=== PATIENT | male | born 1950 | race Caucasian/White ===

== ENCOUNTER 2023-09-16 06:32 | Day surgery (SDC) | payer OTHER ==
--- NOTE | 2023-09-13 14:08 | EKG ---
Test Date: 2023-09-12 Test Time: 12:11:37 Floor Runner: ELVER MEASUREMENT RESULTS: Intervals: Rate: 71 LA: 202 QRSD: 90 QT: 410 QTc: 445 [place]: P: 22 LA: 202 QRS: -8 T: 2 INTERPRETIVE STATEMENTS: Sinus rhythm with frequent premature ventricular complexes Minimal voltage criteria for LVH, may be normal variant Nonspecific ST abnormality Abnormal ECG No previous ECG available for comparison Electronically Signed On 09-13-23 14:06:55 APPRENTICE EMBALMER by Ruddy Howard
[2023-09-16] MEDS ORDERED: CYCLOPENTOLATE 2% OPTH 2 ML OPTH ONE (07:00)
[2023-09-16] MEDS ORDERED: PHENYLEPHRINE 10% OPTH 5ML OPTH ONE (07:00)
[2023-09-16] MEDS ORDERED: TROPICAMIDE 1% OPTH 3 ML BOT OPTH ONE (07:00)
[2023-09-16] MEDS ORDERED: MOXIFLOXACIN HCL 10 DROPS/ML **OR USE OPTH ONE (07:00)
[2023-09-16] MEDS ORDERED: KETOROLAC OPTHALMIC 5 ML BOT ONE (07:01)
[2023-09-16] MEDS ORDERED: BSS OPTHALMIC SOL 15 ML OPTH ONE (07:12)
[2023-09-16] MEDS ORDERED: POVIDONE-IODINE 5% EYE DROPS ONE (07:12)
[2023-09-16] MEDS ORDERED: BALANCED SALT IRRIG PLAIN 500 ML IRR ONE (07:12)
[2023-09-16] MEDS ORDERED: propofoL 200 MG/20 ML VIAL IV ONE (07:27)
[2023-09-16] MEDS ORDERED: EPHEDRINE SULF 50 MG/ML VIAL ONE (07:58)
--- NOTE | 2023-09-16 08:44 | OP ---
Date of Procedure: 09/16/2023 Surgeon: Jay Saenz MD Preoperative Diagnosis: Visually significant senile cataract, right eye. Postoperative Diagnosis: Visually significant senile cataract, right eye. Procedure Performed: Cataract extraction, right eye, with placement of intraocular lens. Description Of Procedure: After being properly identified in the preoperative holding area, the jaquan ent was taken back to the operating room, where a time-out was performed. The patient was then place d under general anesthesia and prepped and draped in the normal sterile fashion. Examination of the eye underneath the operating microscope revealed a very well-dilated pupil and a good red reflex. Th e globe was grasped with a pair of 0.12 forceps and paracentesis wound was made superiorly and inferi marcial using a 1 mm MVR blade. The anterior chamber was then filled with Viscoat. Again grasping the globe with a pair of 0.12 forceps, the main phaco incision wound was made using a 2.4 mm keratome in a triplanar fashion. A cystotome was used to initiate a capsulotomy, and this was completed using Ut rata forceps. Hydrodissection and hydrodelineation were carried out using a Ramesh cannula resulting in free rotation of the lens nucleus. The lens was thereafter removed in the standard divide and con quer technique. Once all 4 quadrants had been removed, the phaco handpiece was exchanged for bimanua l irrigation-aspiration handpieces and remaining cortical material was removed and the capsular bag p olished. The capsular bag was then filled with additional Provisc, and then, a Gilbert and Gilbert m deepak 20.0 diopter lens, model DC blue, serial #[id number], was implanted into the capsular bag. The viscoelastic was then removed using the irrigation-aspiration handpieces and the wounds hydrated and found to be watertight. The procedure was concluded with the patient tolerating the procedure well, having been under general anesthesia the entire time. The lid speculum and drapes were removed and t he patient pressure patched over TobraDex ointment. He was taken to the postoperative holding area i n stable condition and is to follow up with myself, Dr. Jay Saenz, tomorrow. There were no comp lications. Estimated blood loss was nil. No specimens were sent. No drains were placed. Implants are as above. JPG/MODL Voice ID: [id number] Report ID: [id number]
[2023-09-16 08:51] VITALS: TEMP 97
[2023-09-16 12:13] VITALS: O2SAT 98
[2023-09-16 12:14] VITALS: BP 118/73
== END 2023-09-16 09:33 | disposition home or self-care (01) ==
LOC: OR 06:32 → EEVIPCON 07:30 → OR 09:33
PROVIDERS: ATTEND Ophthalmology
PROC: 08RJ30Z Replacement of Right Lens with Intraocular Telescope, Percutaneous Approach (ICD-10-PCS; principal; 2023-09-16 07:30)
DX: H25.13 Age-related nuclear cataract, bilateral (principal); I10 Essential (primary) hypertension; E66.9 Obesity, unspecified; G47.33 Obstructive sleep apnea (adult) (pediatric); Z88.0 Allergy status to penicillin
CPT/HCPCS: 93005; 66984; J2704; J1885